=== PATIENT | male | born 1970 | race Two or more races ===

== ENCOUNTER 2016-09-03 10:53 | Emergency (ER) | payer BC ==
[~2016-09-03] VITALS: Ht 177.8 cm; Wt 89.8 kg
[2016-09-03 11:21] VITALS: BP 142/88
[2016-09-03] MEDS ORDERED: HYDROmorphone HCL 2 MG/ML VL IM ONE (11:30)
[2016-09-03] MEDS ORDERED: ONDANSETRON HCL 4 MG/2 ML VIAL IM ONE (11:30)
== END 2016-09-03 12:51 | disposition home or self-care (01) ==
LOC: ER 11:03
DX: S39.012A Strain of muscle, fascia and tendon of lower back, initial encounter (principal); M54.5 Low back pain; M51.27 Other intervertebral disc displacement, lumbosacral region; X58.XXXA Exposure to other specified factors, initial encounter; Y93.89 Activity, other specified; Y99.8 Other external cause status; Y92.89 Other specified places as the place of occurrence of the external cause
CPT/HCPCS: 72131; 96372; 99284; J1170; J2405